=== PATIENT | female | born 1940 | race Caucasian/White ===

== ENCOUNTER → 2016-09-28 | Outpatient (CLI) | payer MEDICARE, BC ==
[~2016-09-28] VITALS: Ht 151.1 cm; Wt 70.8 kg
[~2016-09-28] MED LIST: ADIPEX-P37.5 M1 PO; ADIPEX-P37.5 MG PO; ALEVE220 MG PO; ASPIRIN E.C. 8181 MG PO; BELVIQ PO; BENAZEPRIL10 MG PO; BUFFERED ASPIR325 M2 PO; CAL-600600 MG PO; CLONAZEPAM0.5 MG PO; DESYREL 50MG50 MG PO; FERROUS SULFATE65 MG PO; KLONOPIN 0.5MG0.5 MG PO; KLONOPIN 1MG1 MG PO; LAMICTAL 100MG100 MG PO; LOTENSIN 1010 MG/TAB PO; LOTENSIN HCT 101 TAB PO; MAGNESIUM ELEM300 MG PO; MELATONIN5 M1 SL; METFORMIN500 MG PO; MIRAPEX 0.0.125 MG/T PO; MIRAPEX0.125 MG PO; MULTIPLE VITAMI1 CAP PO; MULTIPLE VITAMI1 TA1 PO; OMEGA 3 120 MG-1 CAP PO; OMEGA-3 1000 MG1 CAP PO; PHENDIMETRAZIN105 MG PO; PHENTERMINE15 MG PO; PROBIOTIC FORMU1 CAP PO; RESTASIS 0.4 M0.4 ML OU; SIMVASTATIN40 MG PO; TOPAMAX 25MG25 M1 PO; TOPAMAX25 MG PO; VALERIAN500 MG PO; VITAMIN B COMPL1 T16 PO; VITAMIN D 1001000 IU PO; VITAMIN D50000 I1 PO; WELLBUTRIN SR150 M1 PO; ZOCOR 40MG40 MG PO; [UNRECOGNIZED DRUG - OTHER] PO
[2016-09-28 10:27] VITALS: BP 139/83; PULSE 79
[2016-09-28 10:42] VITALS: BP 139/83; PULSE 79
== END ==
LOC: LIGHT 10:21
DX: E78.4 Other hyperlipidemia (principal); E88.81 Metabolic syndrome and other insulin resistance; E66.09 Other obesity due to excess calories; Z68.31 Body mass index [BMI] 31.0-31.9, adult

== ENCOUNTER → 2016-11-30 | Outpatient (CLI) | payer MEDICARE, BC ==
[~2016-11-30] VITALS: Ht 151.1 cm; Wt 72.8 kg
[2016-11-30 10:49] VITALS: BP 130/76; PULSE 72
== END ==
LOC: LIGHT 10:45
DX: E78.4 Other hyperlipidemia (principal); E88.81 Metabolic syndrome and other insulin resistance; E16.1 Other hypoglycemia; E66.8 Other obesity; Z68.31 Body mass index [BMI] 31.0-31.9, adult

== ENCOUNTER → 2017-01-25 | Outpatient (CLI) | payer MEDICARE, BC ==
[~2017-01-25] VITALS: Ht 151.1 cm; Wt 71.9 kg
[2017-01-25 10:12] VITALS: BP 145/87; PULSE 73
== END ==
LOC: LIGHT 10:00
DX: E78.5 Hyperlipidemia, unspecified (principal); E88.81 Metabolic syndrome and other insulin resistance; E66.9 Obesity, unspecified; Z68.31 Body mass index [BMI] 31.0-31.9, adult; Z71.3 Dietary counseling and surveillance; E16.1 Other hypoglycemia

== ENCOUNTER → 2017-03-08 | Outpatient (CLI) | payer MEDICARE, BC ==
[~2017-03-08] VITALS: Ht 151.1 cm; Wt 71.9 kg
[2017-03-08 09:10] VITALS: BP 139/84; PULSE 70
== END ==
LOC: LIGHT 09:00
DX: E78.5 Hyperlipidemia, unspecified (principal); E88.81 Metabolic syndrome and other insulin resistance; E66.9 Obesity, unspecified; Z68.31 Body mass index [BMI] 31.0-31.9, adult; Z71.3 Dietary counseling and surveillance; E16.1 Other hypoglycemia

== ENCOUNTER → 2017-04-12 | Outpatient (CLI) | payer MEDICARE, BC ==
[~2017-04-12] VITALS: Ht 151.1 cm; Wt 68.5 kg
[2017-04-12 13:09] VITALS: BP 160/70; PULSE 80
== END ==
LOC: LIGHT 13:02
DX: E78.5 Hyperlipidemia, unspecified (principal); E88.81 Metabolic syndrome and other insulin resistance; E66.9 Obesity, unspecified; Z68.30 Body mass index [BMI] 30.0-30.9, adult; Z71.3 Dietary counseling and surveillance; E16.1 Other hypoglycemia

== ENCOUNTER → 2017-05-17 | Outpatient (CLI) | payer MEDICARE, BC ==
[~2017-05-17] VITALS: Ht 151.1 cm; Wt 65.1 kg
[~2017-05-17] MED LIST changes: +MOBIC15 MG PO
[2017-05-17 10:20] VITALS: BP 152/50; PULSE 68
== END ==
LOC: LIGHT 09:53
DX: E78.5 Hyperlipidemia, unspecified (principal); E88.81 Metabolic syndrome and other insulin resistance; E66.9 Obesity, unspecified; Z68.28 Body mass index [BMI] 28.0-28.9, adult; Z71.3 Dietary counseling and surveillance; E16.1 Other hypoglycemia

== ENCOUNTER → 2017-06-28 | Outpatient (CLI) | payer MEDICARE, BC ==
[~2017-06-28] VITALS: Ht 151.1 cm; Wt 63.0 kg
[2017-06-28 09:45] VITALS: BP 110/82; PULSE 72
== END ==
LOC: LIGHT 09:29
DX: E78.5 Hyperlipidemia, unspecified (principal); E88.81 Metabolic syndrome and other insulin resistance; E66.9 Obesity, unspecified; Z68.27 Body mass index [BMI] 27.0-27.9, adult; Z71.3 Dietary counseling and surveillance; E16.1 Other hypoglycemia

== ENCOUNTER → 2017-08-23 | Outpatient (CLI) | payer MEDICARE, BC ==
[~2017-08-23] VITALS: Ht 151.1 cm; Wt 64.4 kg
[2017-08-23 10:43] VITALS: BP 132/84; PULSE 80
== END ==
LOC: LIGHT 10:35
DX: E78.5 Hyperlipidemia, unspecified (principal); E88.81 Metabolic syndrome and other insulin resistance; E66.9 Obesity, unspecified; Z68.28 Body mass index [BMI] 28.0-28.9, adult; Z71.3 Dietary counseling and surveillance; E16.1 Other hypoglycemia
CPT/HCPCS: G0463

== ENCOUNTER 2017-09-20 14:45 | Outpatient (RCR) | payer MEDICARE, BC | END 2017-09-25 10:22 | disposition home or self-care (01) | LOC: WSPT 14:45 | DX: M17.0 Bilateral primary osteoarthritis of knee (principal) | CPT/HCPCS: G8978-GP; G8979-GP; G8980-GP ==

== ENCOUNTER → 2017-10-11 | Outpatient (CLI) | payer MEDICARE, BC | LOC: MC.RAD 10:25 | DX: Z12.31 Encounter for screening mammogram for malignant neoplasm of breast (principal) ==

== ENCOUNTER → 2017-10-25 | Outpatient (CLI) | payer MEDICARE, BC ==
[~2017-10-25] VITALS: Ht 151.1 cm; Wt 64.6 kg
[2017-10-25 08:36] VITALS: BP 150/86; PULSE 80
== END ==
LOC: LIGHT 10-04 08:55
DX: E78.5 Hyperlipidemia, unspecified (principal); E88.81 Metabolic syndrome and other insulin resistance; E66.9 Obesity, unspecified; Z68.28 Body mass index [BMI] 28.0-28.9, adult; Z71.3 Dietary counseling and surveillance; E16.1 Other hypoglycemia
CPT/HCPCS: G0463

== ENCOUNTER → 2017-12-06 | Outpatient (CLI) | payer MEDICARE, BC ==
[~2017-12-06] VITALS: Ht 151.1 cm; Wt 66.5 kg
[~2017-12-06] MED LIST changes: +XALATAN EYE DROPS OU
[2017-12-06 10:51] VITALS: BP 168/100; PULSE 80
== END ==
LOC: LIGHT 10:18
DX: E78.5 Hyperlipidemia, unspecified (principal); E88.81 Metabolic syndrome and other insulin resistance; E66.9 Obesity, unspecified; Z68.29 Body mass index [BMI] 29.0-29.9, adult; Z71.3 Dietary counseling and surveillance; E16.1 Other hypoglycemia
CPT/HCPCS: G0463

== ENCOUNTER → 2018-02-21 | Outpatient (CLI) | payer MEDICARE, BC ==
[~2018-02-21] VITALS: Ht 151.1 cm; Wt 64.0 kg
[2018-02-21 13:12] VITALS: BP 158/90; PULSE 64
== END ==
LOC: LIGHT 11:07
DX: E78.5 Hyperlipidemia, unspecified (principal); E88.81 Metabolic syndrome and other insulin resistance; E66.9 Obesity, unspecified; Z68.28 Body mass index [BMI] 28.0-28.9, adult; Z71.3 Dietary counseling and surveillance; E16.1 Other hypoglycemia
CPT/HCPCS: G0463

== ENCOUNTER → 2018-05-09 | Outpatient (CLI) | payer MEDICARE, BC ==
[~2018-05-09] VITALS: Ht 151.1 cm; Wt 63.5 kg
[2018-05-09 11:22] VITALS: BP 148/90; PULSE 76
== END ==
LOC: LIGHT 10:58
DX: E78.5 Hyperlipidemia, unspecified (principal); E88.81 Metabolic syndrome and other insulin resistance; E16.9 Disorder of pancreatic internal secretion, unspecified; E66.9 Obesity, unspecified; Z68.27 Body mass index [BMI] 27.0-27.9, adult; Z71.3 Dietary counseling and surveillance
CPT/HCPCS: G0463

== ENCOUNTER → 2018-08-01 | Outpatient (CLI) | payer MEDICARE, BC ==
[~2018-08-01] VITALS: Ht 151.1 cm; Wt 64.4 kg
[2018-08-01 09:44] VITALS: BP 140/90; PULSE 64
== END ==
LOC: LIGHT 09:37
DX: E78.5 Hyperlipidemia, unspecified (principal); E88.81 Metabolic syndrome and other insulin resistance; E16.9 Disorder of pancreatic internal secretion, unspecified; E66.9 Obesity, unspecified; Z68.28 Body mass index [BMI] 28.0-28.9, adult; Z71.3 Dietary counseling and surveillance
CPT/HCPCS: G0463

== ENCOUNTER → 2018-09-26 | Outpatient (CLI) | payer MEDICARE, BC ==
[~2018-09-26] VITALS: Ht 151.1 cm; Wt 64.9 kg
[2018-09-26 09:19] VITALS: BP 140/84; PULSE 72
== END ==
LOC: LIGHT 09:11
DX: E78.5 Hyperlipidemia, unspecified (principal); E88.81 Metabolic syndrome and other insulin resistance; E16.9 Disorder of pancreatic internal secretion, unspecified; E66.9 Obesity, unspecified; Z68.28 Body mass index [BMI] 28.0-28.9, adult; Z71.3 Dietary counseling and surveillance
CPT/HCPCS: G0463

== ENCOUNTER → 2018-11-11 | Outpatient (CLI) | payer MEDICARE, BC | LOC: MC.RAD 13:45 | DX: Z12.31 Encounter for screening mammogram for malignant neoplasm of breast (principal) ==

== ENCOUNTER → 2018-11-21 | Outpatient (CLI) | payer MEDICARE, BC ==
[~2018-11-21] VITALS: Ht 151.1 cm; Wt 63.7 kg
[~2018-11-21] MED LIST changes: +TUMERIC PO; +[UNRECOGNIZED DRUG - OTHER] OU
[2018-11-21 09:40] VITALS: BP 140/82; PULSE 76
== END ==
LOC: LIGHT 09:10
DX: E78.5 Hyperlipidemia, unspecified (principal); E88.81 Metabolic syndrome and other insulin resistance; E16.9 Disorder of pancreatic internal secretion, unspecified; E66.9 Obesity, unspecified; Z68.28 Body mass index [BMI] 28.0-28.9, adult; Z71.3 Dietary counseling and surveillance
CPT/HCPCS: G0463

== ENCOUNTER → 2019-02-20 | Outpatient (CLI) | payer MEDICARE, BC ==
[~2019-02-20] VITALS: Ht 151.1 cm; Wt 63.0 kg
[2019-02-20 10:08] VITALS: BP 122/84; PULSE 72
== END ==
LOC: LIGHT 01-23 14:18
DX: E78.5 Hyperlipidemia, unspecified (principal); E88.81 Metabolic syndrome and other insulin resistance; E16.9 Disorder of pancreatic internal secretion, unspecified; E66.9 Obesity, unspecified; Z68.27 Body mass index [BMI] 27.0-27.9, adult; Z71.3 Dietary counseling and surveillance
CPT/HCPCS: G0463

== ENCOUNTER → 2019-03-18 | Outpatient (CLI) | payer MEDICARE, BC | LOC: COL.RAD 09:04 | DX: M79.672 Pain in left foot (principal); M79.671 Pain in right foot | CPT/HCPCS: J3301; Q9967 ==

== ENCOUNTER → 2019-04-24 | Outpatient (CLI) | payer MEDICARE, BC ==
[~2019-04-24] VITALS: Ht 151.1 cm; Wt 64.0 kg
[2019-04-24 09:24] VITALS: BP 136/76; PULSE 80
== END ==
LOC: LIGHT 09:03
DX: E78.5 Hyperlipidemia, unspecified (principal); E88.81 Metabolic syndrome and other insulin resistance; E16.9 Disorder of pancreatic internal secretion, unspecified; Z68.28 Body mass index [BMI] 28.0-28.9, adult; Z71.3 Dietary counseling and surveillance
CPT/HCPCS: G0463

== ENCOUNTER → 2019-07-03 | Outpatient (CLI) | payer MEDICARE, BC ==
[~2019-07-03] VITALS: Ht 151.1 cm; Wt 64.2 kg
[2019-07-03 11:11] VITALS: BP 157/90; PULSE 84
== END ==
LOC: LIGHT 10:51
DX: E78.5 Hyperlipidemia, unspecified (principal); E88.81 Metabolic syndrome and other insulin resistance; E16.9 Disorder of pancreatic internal secretion, unspecified; E66.01 Morbid (severe) obesity due to excess calories; Z68.28 Body mass index [BMI] 28.0-28.9, adult; Z71.3 Dietary counseling and surveillance
CPT/HCPCS: G0463

== ENCOUNTER → 2019-10-02 | Outpatient (CLI) | payer MEDICARE, BC ==
[~2019-10-02] VITALS: Ht 151.1 cm; Wt 65.3 kg
[~2019-10-02] MED LIST changes: +ALPHA LIPOIC A200 M2 PO; -RESTASIS 0.4 M0.4 ML OU; +RESTASIS 60VL OU; +SYSTANE BALANCE10 M1 OU; +VITAMIN D31000 IU PO; -[UNRECOGNIZED DRUG - OTHER] OU
[2019-10-02 09:43] VITALS: BP 140/70; PULSE 64
== END ==
LOC: LIGHT 09:11
DX: Z68.28 Body mass index [BMI] 28.0-28.9, adult (principal); E78.5 Hyperlipidemia, unspecified; E88.81 Metabolic syndrome and other insulin resistance; E16.1 Other hypoglycemia
CPT/HCPCS: G0463

== ENCOUNTER 2019-10-20 14:45 | Outpatient (RCR) | payer MEDICARE, BC | END 2019-11-26 10:24 | disposition home or self-care (01) | LOC: WSPT 14:45 | DX: M19.072 Primary osteoarthritis, left ankle and foot (principal); M19.071 Primary osteoarthritis, right ankle and foot; M25.561 Pain in right knee; M25.562 Pain in left knee ==

== ENCOUNTER → 2020-02-26 | Outpatient (CLI) | payer MEDICARE, BC ==
[~2020-02-26] VITALS: Ht 151.1 cm; Wt 66.5 kg
[~2020-02-26] MED LIST changes: +NORCO 325 MG-51 TAB PO; +SOOTHE XP 1%-41 EACH OP
[2020-02-26 09:08] VITALS: BP 110/64; PULSE 80
== END ==
LOC: LIGHT 08:59
DX: E66.8 Other obesity (principal); Z68.29 Body mass index [BMI] 29.0-29.9, adult; E78.5 Hyperlipidemia, unspecified; E88.81 Metabolic syndrome and other insulin resistance; E16.1 Other hypoglycemia
CPT/HCPCS: G0463

== ENCOUNTER → 2020-03-25 | Outpatient (CLI) | payer MEDICARE, BC ==
[~2020-03-25] VITALS: Ht 151.1 cm; Wt 66.0 kg
[2020-03-25 14:07] VITALS: BP 115/72; PULSE 72
== END ==
LOC: LIGHT 11:24
DX: E66.8 Other obesity (principal); Z68.28 Body mass index [BMI] 28.0-28.9, adult; E78.5 Hyperlipidemia, unspecified; E88.81 Metabolic syndrome and other insulin resistance; E16.1 Other hypoglycemia
CPT/HCPCS: G0463

== ENCOUNTER → 2020-04-20 | Outpatient (CLI) | payer MEDICARE, BC | LOC: MC.RAD 10:00 | DX: Z12.31 Encounter for screening mammogram for malignant neoplasm of breast (principal) ==

== ENCOUNTER → 2020-05-27 | Outpatient (CLI) | payer MEDICARE, BC ==
[~2020-05-27] VITALS: Ht 151.1 cm; Wt 68.7 kg
[~2020-05-27] MED LIST changes: +CALCIUM 600 MG1 EAC2 PO; +TURMERIC500 MG PO
[2020-05-27 13:11] VITALS: BP 132/90; PULSE 80
== END ==
LOC: LIGHT 13:03
DX: E66.8 Other obesity (principal); Z68.30 Body mass index [BMI] 30.0-30.9, adult; E78.5 Hyperlipidemia, unspecified; E88.81 Metabolic syndrome and other insulin resistance; E16.1 Other hypoglycemia
CPT/HCPCS: G0463

== ENCOUNTER 2020-06-03 10:45 | Outpatient (RCR) | payer MEDICARE, BC | END 2020-06-06 | disposition home or self-care (01) | LOC: WSPT | DX: M19.072 Primary osteoarthritis, left ankle and foot (principal); M19.071 Primary osteoarthritis, right ankle and foot; M17.0 Bilateral primary osteoarthritis of knee ==

== ENCOUNTER 2020-06-28 09:00 | Outpatient (RCR) | payer MEDICARE, BC | END 2020-08-16 | disposition home or self-care (01) | LOC: WSC | DX: M19.072 Primary osteoarthritis, left ankle and foot (principal); M17.0 Bilateral primary osteoarthritis of knee; M19.071 Primary osteoarthritis, right ankle and foot ==